=== PATIENT | female | born 1955 | race Caucasian/White ===

== ENCOUNTER 2024-09-03 07:50 | Emergency (ER) | payer OTHER, BC, SELFPAY ==
--- OUTSIDE RECORDS SUMMARY | 1999-04-16 19:00 | XMS_ITS | Continuity of Care Document ---
Author Organization [facility] Address [address] [place] [address] Phone Care Team Providers Care Energy Risk Management Analyst Name Role Phone No Information Unavailable Unavailable Medications Medication Instructions Dosage Effective Dates (start - stop) Status Comments No Drug Therapy Prescribed Advance Directives Directive Yes / No Effective Date File Name No Information Encounters Encounter Description Practice Location Reason(s) For Visit Diagnoses Date Provider Providers Copied on Encounter [facility], [address] [place] [address], [id number], [place] tel:[phone] No Information No Information Family History Family Member Type Diagnosis Age At Onset No Information Payers Payer name Insurance type Covered libertarian ID Authoriza tion(s) No Information Social History Type Description Quantity Date Captured Comments Sex Female Smoking Status No Information Chief Complaint And Reason For Visit No Information History Of Present Illness Encounter Date Complaint History Of Prese nt Illness No Information Medications Administered Medication Instructions Dosage Effective Dates (start - stop) Status Comments No Drug Therapy Prescribed Instructions Date Instruction Additional Infor mation No Information Assessments Type Assessment Date No Information
--- NOTE | 2024-09-03 07:52 | ED_ITS ---
HPI - General Adult General Date Seen: 09/03/24 Chief complaint: Fall/Minor Trauma Stated complaint: fell at work, injured eye, dizziness Time Seen by Provider: 09/03/24 07:52 History of Present Illness HPI narrative: 69 yo F with history of type 2 diabetes, hypertension, dyslipidemia, elevated BMI presenting to the ER today with her daughter with concern for head injury and left eye bruising. She works as an cost estimating engineer. Yesterday she was at work at a job in [facility] [employer]. She was walking into a manufacturing plant when she accidentally tripped. There was apparently a 1 in step-off in this sidewalk that she did not see. She fell forward and struck her face and left eye against the bottom of a glass door. Not sure if she had loss of consciousness. She did have immediate onset of headache. She broke her glasses and suffered a superficial laceration to her left lateral eyebrow. She needed help to get up. She was ambulatory yesterday. She was taken to the ER in the city of [facility]. Apparently she had an x-ray (or may be a CT, more likely) of her orbits that showed no fracture. She knows for sure that the doctor did a scan of her orbits and told her nothing was broken. She does not recall any mention of a head CT. She was discharged from the ER and try to go back to work but was having trouble helping. She ultimately went home with her daughter. Since being discharged home she has had worsening bruising and swelling of her left upper and lower eyelid. It so bruised and swollen this morning that is essentially swollen shut. She is having trouble with her depth perception because she only has her right eye. Overnight she noted a couple of episodes of dizziness that happened typically with change in position usually from going standing to laying. She has a mild headache. She has more significant pain in her left eye. She took Tylenol for that and it is only somewhat helpful. Pain is currently a 5/10. Headache is mostly left frontal but also in the back and a little bit into the neck. She also has a little bit of soreness in her shoulders and knees, although she thinks that is just achiness. She is not anticoagulated. She takes baby aspirin 81 mg per day and yesterday was told not to take that for the next 3 days. Related Data Home Medications ?Medication ?Instructions ?Recorded ?Confirmed aspirin 81 mg capsule 81 mg PO DAILY 09/03/24 05/2 0 atorvastatin .ROUTE 09/03/24 losartan .ROUTE 09/03/24 metformin .ROUTE 09/03/24 pantoprazole PO 09/03/24 topiramate .ROUTE 09/03/24 Previous Rx's ?Medication ?Instructions ?Recorded hydrocodone 5 mg-acetaminophen 325 1 tab PO Q6H PRN pa in #10 tabs 09/03/24 mg tablet ondansetron 4 mg disintegrating 4 mg PO Q8H PRN nausea and 09/03/24 tablet vomiting #10 tabs Allergies Allergy/AdvReac Type Severity Reaction Status Date / Time bacitracin (From Neosporin Allergy Intermediate Hives Verified 09/03/24 08:03 ([id number])) neomycin (From Neosporin Allergy Intermediate Hives Verified 09/03/24 08:03 ([id number])) polymyxin B (From Neosporin Allergy Intermediate Hives Verified 09/03/24 08:03 ([id number])) OSIEL Inhibitors AdvReac Intermediate Cough Verified 09/03/24 08:03 [facility] Social History Smoking Status: Unknown if ever smoked Exam Narrative: Exam Narrative: Primary Survey: A- patent. Speaking clearly. Phonation normal. No stridor. B- breathing easily. Lung sounds clear and equal. Oxygen saturation normal on room air C- no active bleeding. Blood pressure stable. Symmetric pulses and cap refill in 4 extremities. D- alert and oriented x3. GCS 15. No focal deficits. Constitutional: Appears well-developed and well-nourished. Alert. Conversant. Non toxic. HENT: Head: No depressed skull fracture, Raccoon Eyes, Montaño's sign, or hemotympanum. Face normal. TMs normal. Nose: Nose normal. Mouth/Throat: Oral mucosa is clear and moist. no trismus. Pharynx normal. Tonsils symmetric. No tonsillar enlargement, erythema, or exudate. Eyes: Left eye upper and lower eyelid ecchymosis and swelling. She is not able to open her eyes spontaneously but with gentle digital traction I am able open upper high. Sclera is normal. Conjunctivae normal. EOM normal. Pupils equal, round, and reactive to light. No scleral icterus. No exophthalmos or enophthalmos. Neck: Normal range of motion. Neck supple. No tracheal deviation present. No posterior midline step-off. She does have headache and neck pain. Cardiovascular: Normal rate, regular rhythm. No gallop. No friction rub. No murmur heard. Symmetric radial artery pulses Pulmonary/Chest: Effort normal. No stridor. No respiratory distress. No wheezes. No rales. No rhonchi . No tenderness. Abdominal: Soft. Bowel sounds normal. No distension. No mass. No tenderness. No rebound. No guarding. Musculoskeletal: RUE: Normal range of motion. No tenderness. No deformity LUE: Normal range of motion. No tenderness. No deformity RLE: Normal range of motion. No edema. No tenderness. No deformity LLE: Normal range of motion. No edema. No tenderness. No deformity Lymph: No cervical adenopathy. Neurological: Mental status normal. Attention normal. Alert and oriented x3. GCS 15. Memory normal. Speech fluent. Cognition normal. Cranial Nerves intact II-XII except I did not formally test gag or visual acuity. EOMI. Palate elevates symmetrically and tongue protrudes in the midline. Strength: 5/5 trapezius on the right and left 5/5 deltoid on the right and left 5/5 biceps on the right and left 5/5 triceps on the right and left 5/5 operational meteorologist on the right and left 5/5 thumb opposition on the right and le ft 5/5 finger abduction on the right and le ft 5/5 hip flexors (L3) on the right and le ft 5/5 quadriceps (L4) on the right and lef t 5/5 tibialis anterior on the right and l eft 5/5 EHL (L5) on the right and left 5/5 gastrocnemius (S1) on the right and left 5/5 hamstring on the right and left Sensation intact to light touch in both upper extremities (C4-T1) Sensation intact to light touch in Both lower extremities (L4-S1). Finger to nose and coordination normal. Gait normal. She is able to get herself out of bed and stand up, pivot and walk, get back into bed without suffering any episodes of dizziness. Skin: Skin is warm and dry. No rash noted. No pallor. Normal capillary refill. Psychiatric: Normal mood. Normal affect. Const: Vital Signs, click to edit/add: Vital Signs - 24 hr 09/03/24 08:03 Temperature 97.2 F L Pulse Rate [Pulse Oximeter] 75 Respiratory Rate 16 Blood Pressure [Ri ght Forearm] 150/83 H Pulse Oximetry 95 Oxygen Delivery Me thod Room Air Course Vital Signs Vital signs: Initial Vital Signs Temperature 97.2 F L 09/03/24 08:03 Temperature Source Temporal Artery Scan 09/03/24 08:03 Pulse Rate 75 09/03/24 08:03 Respiratory Rate 16 09/03/24 08:03 Blood Pressure 150/83 H 09/03/24 08:03 Blood Pressure Mean 105 09/03/24 08:03 Pulse Oximetry 95 09/03/24 08:03 Oxygen Delivery Method Room Air 09/03/24 08:03 Vital Signs Temperature 97.2 F L 09/03/24 08:03 Pulse Rate 75 09/03/24 08:03 Respiratory Rate 16 09/03/24 08:03 Blood Pressure 150/83 H 09/03/24 08:03 Pulse Oximetry 95 09/03/24 08:03 Oxygen Delivery Method Room Air 09/03/24 08:03 Temperature 97.2 F L 09/03/24 08:03 Pulse Rate 75 09/03/24 08:03 Respiratory Rate 16 09/03/24 08:03 Blood Pressure 150/83 H 09/03/24 08:03 Pulse Oximetry 95 09/03/24 08:03 Oxygen Delivery Method Room Air 09/03/24 08:03 Medications Administered Medications: Discontinued Medications Generic Name Dose Route Start Last Admin Trade Name Freq PRN Reason Stop Dose Admin Hydrocodone Bitart/Acetaminophen 1 tab 09/03/24 08:32 09/03/24 08:47 Hydrocodone-Acetamin 5-325 Mg 1 Tab PO 09/03/24 08:33 1 tab ONCE ONE Administration Ondansetron HCl 4 mg 09/03/24 08:32 09/03/24 08:47 Ondansetron Odt 4 Mg Tab PO 09/03/24 08:33 4 mg ONCE ONE Administration Medical Decision Making [facility] Narrative Medical decision making narrative: This patient presents with blunt head trauma after a fall where she tripped yesterday. She does have significant ecchymosis and swelling in the left periorbital tissues. She already was seen in different ER yesterday and reportedly had CT scan that showed no evidence for orbital fracture. She returns to the ER today here in [place] because she has had new symptoms overnight including ongoing headache and episodes of dizziness. Differential includes intracranial injuries (e.g. skull fracture, epidural hematoma, subdural hematoma, intracerebral hemorrhage, and traumatic subarachnoid hemorrhage), verses concussion or other traumatic brain injury. CT imaging was obtained and fortunately was normal. At this time it appears that the patient's symptoms are due to a concussion. Differential for dizzy spells is broad. However based on the provided history, symptoms seem highly consistent with concussion. At this point I do not think she needs workup with EKG, labs, property assessment monitor look for cardiac arrhythmia or cardiac causes of dizziness. Symptoms not consistent with seizures. At this point only she need labs to check electrolytes, blood sugar, sodium, or urinalysis. C-spine CT is negative. The patient/family understand that they must return if any red flags appear/develop in the coming hours/days, as this may represent an indication to perform a repeat CT scan or further evaluation. I have noted that red flags include: headaches that get worse, increased drowsiness, strange behavior, repetitive speech, seizures, repeated vomiting, growing confusion, increased irritability, slurred speech, weakness or numbness, and loss of responsiveness. This information will also be provided in writing at discharge. I have discussed the second impact syndrome, and the importance of not sustaining repeated concussion in the next 1-2 weeks. Post concussive syndrome is also discussed. The patient's questions have been answered. They have a responsible adult to accompany them home. Imaging Data CT C spine: Attestation: I have reviewed the pertinent imaging results. Radiologist's impression: IMPRESSION: Multilevel degenerative changes cervical spine without evidence of cervical spine fracture. CT scan - head: Attestation: I have reviewed the pertinent imaging results. Radiologist's impression: IMPRESSION: Left periorbital scalp hematoma without evidence of calvarial fracture or intracranial bleed. Discharge Plan Discharge Clinical Impression: Concussion, Dizziness, Periorbital ecchymosis of left eye Patient Disposition: Home, Self-Care Condition: Stable Instructions: Black Eye (ED), Concussion (ED) Additional Instructions: As we discussed, please return to the ER right away if you have worsening symptoms especially severe headache, confusion, repetitive vomiting. He at this point we suspect you probably have a concussion from your fall. This concussion may take several days or even a couple weeks to heal. However if your not doing substantially better within the next 3-4 days, please recheck with your doctor or come back to the ER. It is okay to use Tylenol as needed for pain. Use the prescription pain killer, [place], if needed. Be careful because [place] can cause dizziness, drowsiness, constipation, and can be addictive. Prescriptions: New hydrocodone-acetaminophen 5-325 mg tablet 1 tab PO Q6H PRN (Reason: pain) Qty: 10 0RF ondansetron 4 mg tablet,disintegrating 4 mg PO Q8H PRN (Reason: nausea and vomiting) Qty: 10 0RF No Action aspirin 81 mg capsule 81 mg PO DAILY atorvastatin .ROUTE losartan .ROUTE metformin .ROUTE pantoprazole PO topiramate .ROUTE Follow Up/Referrals: Provider,Not a Local [Primary Care Provider, Family Practice] Stand Alone Forms: [facility], [facility] Info Instructions
[2024-09-03 08:03] VITALS: BP 150/83; PULSE 75; RESP 16; TEMP 36.2; O2SAT 95
--- NOTE | 2024-09-03 08:32 | CRLHL7_ITS ---
For Patients: As a result of the Century Cures Act, medical imaging exams and procedure reports are released immediately into your electronic medical record. You may view this report before your referring provider. If you have questions, please contact your health care provider. INDICATION: Fall, dizziness, headache and neck pain. TECHNIQUE: CT head without contrast. COMPARISON: None. FINDINGS: CSF spaces: Within normal limits for age. Brain parenchyma: The de los santos-white differentiation is normal. No sign of mass, hemorrhage, or midline shift. Skull base and calvarium: The visualized paranasal sinuses and mastoid air cells demonstrate no acute or significant findings. The visualized orbits are grossly unremarkable. No skull fractures. Left periorbital scalp hematoma. IMPRESSION: Left periorbital scalp hematoma without evidence of calvarial fracture or intracranial bleed. Please note that all CT scans at this facility use dose modulation, iterative reconstruction, and/or weight-based dosing when appropriate to reduce radiation dose to as low as reasonably achievable. Dictated by Juan Ambrocio MD @ 09/03/2024 8:53:57 AM (Electronically Signed)
--- NOTE | 2024-09-03 08:32 | CRLHL7_ITS ---
For Patients: As a result of the Century Cures Act, medical imaging exams and procedure reports are released immediately into your electronic medical record. You may view this report before your referring provider. If you have questions, please contact your health care provider. INDICATION: Fall, dizziness, headache and neck pain TECHNIQUE: CT cervical spine without contrast. COMPARISON: None FINDINGS: Vertebrae: Alignment is normal. There are no fractures or suspicious bony lesions. Discs and facet joints: Facet hypertrophy C4-5 without significant stenosis. Broad posterior osteophytes at C5-6 causing mild central spinal canal stenosis and [id number] bilateral foraminal stenosis. Eccentric osteophytes at C6-7 causing moderate right foraminal stenosis. Facet hypertrophy without significant stenosis C7-T1. Extraspinal findings: Ossicle within the nuchal ligament. IMPRESSION: Multilevel degenerative changes cervical spine without evidence of cervical spine fracture. Please note that all CT scans at this facility use dose modulation, iterative reconstruction, and/or weight-based dosing when appropriate to reduce radiation dose to as low as reasonably achievable. Dictated by Juan Ambrocio MD @ 09/03/2024 8:58:32 AM (Electronically Signed)
[2024-09-03] MEDS: ONDANSETRON ODT 4 MG TAB PO (08:47)
[2024-09-03] MEDS: HYDROCODONE-ACETAMIN 5-325 MG 1 TAB PO (08:47)
--- OUTSIDE RECORDS SUMMARY | 2024-09-03 09:14 | XMS_ITS | Clinical Summary ---
Author Organization [facility] Address [address] [place] [address] Care Team Providers Care Mold Filler And Drainer Name Role Phone Nancy Molina Primary Care Provider [phone] Jessica Hernandez APRN FLAVORING OIL FILTERER Unavailable [phone] Allergies Active Allergy Reactions Criticality Noted Date Comments Gomez Inhibitors Cough 04/03/2015 Prochlorperazine Other (See Comments) 07/17/2015 Extrapyramidal symptoms Neomycin 04/03/2015 Osfsrdis-Vuejczzgh-Tylwhza din 04/03/2015 Olanzapine Fatigue 07/29/2015 Severe fatigue/groggines s/memory loss Sulfa Antibiotics Swelling Low 10/20/2013 Medications METFORMIN HCL PO Take 500 mg by mouth 2 times daily (with meals) Active ASPIRIN PO Take 81 mg by mouth daily Active polyethylene glycol (MIRALAX/GLYCOL AX) powder Take 1 capful by mouth daily Active ATORVASTATIN CALCIUM PO Take 20 mg by mouth daily Active LOSARTAN POTASSIUM PO Take 25 mg by mouth daily Active Cholecalciferol (VITAMIN D3 PO) Take 2,000 Units by mouth daily Active TRAZODONE HCL PO Take 50 mg by mouth nightly as needed for sleep 1-2 tablets as needed. Active Insulin NPH Human, Isophane, (HUMULIN N KWIKPEN SC) Inject 15 Units Subcutaneous Takes 15 units with Chemo. Dose is according to dose of dexamethasone. Active order for DMEIndications: Malignant neoplasm of fallopian tube, unspecified laterality (H) Cranial Hair prothesis( 2) Due to chemotherapy 2 Device 0 6 Active L-Glutamine 500 MG CAPS 6 Active blood glucose monitoring (ACCU-CHEK FASTCLIX) lancets 1 each 5 Active blood glucose monitoring (NO BRAND SPECIFIED) test strip 1 strip 5 Active HYDROcodone-gomez taminophen (NORCO) 7.5-325 MG per tabletIndicatio ns:Malignant neoplasm of fallopian tube, unspecified laterality (H) Take 1 tablet by mouth every 6 hours as needed for moderate to severe pain 30 tablet 0 6 Active dexamethasone (DECADRON) 4 MG tabletIndicatio ns:Nausea,Malig nant neoplasm of fallopian tube, unspecified laterality (H) Take 1 tablet (4 mg) by mouth daily (with breakfast) On day three of your chemotherapy cycle 2 tablet 0 6 Active ondansetron (ZOFRAN) 8 MG tabletIndicatio ns:Malignant neoplasm of fallopian tube, unspecified laterality (H),Nausea Take 1 tablet (8 mg) by mouth every 8 hours as needed for nausea 30 tablet 2 6 Active LORazepam (ATIVAN) 1 MG tabletIndicatio ns:Nausea Take 1 tablet (1 mg) by mouth every 6 hours as needed for anxiety 30 tablet 0 6 Active gabapentin (NEURONTIN) 300 MG capsuleIndicati ons: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 Encounter for long-term (current) use of medicat ions 06/04/2015 Multiple joint pain 06/04/2015 Neoplastic malignant related fatigue 06/04/2015 Malignant neoplasm of fallop jose tube, unspecified laterality 04/03/2015 Immunizations Immunization Administration Dates Next Due Influenza (IIV3) PF 01/20/2015 Social History Tobacco Use Types Packs/Day Years Used Date Smoking Tobacco: Never Alcohol Use Standard Drinks/Week Comments No 0 (1 standard drink = 0.6 oz pur e alcohol) Adolescent Education Answer Date Record ed Getting School Help Needed Not on file 01/28 Comments No Sex and Gender Information Value Date Recorded Sex Assigned at Not on file 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 Gender Identity Not on file Sexual Orientation Not on file Last Filed Vital Signs Vital Sign Reading Time Taken Comments Blood Pressure 136/71 09/24/2023 9:15 PM CDT Pulse 87 09/24/2023 9:23 PM CDT Temperature 36.7 C (98 F) 09/24/2023 6:08 PM CDT Respiratory Rate 15 09/24/2023 9:23 PM CDT Oxygen Saturation 96% 09/24/2023 9:23 PM CDT Inhaled Oxygen Concentration - - Weight 104.3 kg (230 lb) 09/24/2023 6:06 PM CDT Height 154.9 cm (5' 1) 09/24/2023 6:06 PM CDT Body Mass Index 43.46 09/24/2023 6:06 PM CDT Plan of Treatment Health Maintenance Due Date Last Done Comments ADVANCE CARE PLANNING 1955 ANNUAL REVIEW OF HM ORDERS 1956 CT COLONOGRAPHY 1956 DIABETIC FOOT EXAM 1956 EYE EXAM 1955 FLEX SIG 1956 LIPID 1956 MICROALBUMIN 1956 sDNA (Cologuard) 1956 COLONOSCOPY 1966 RSV VACCINE (1 - Risk 60-74 years 1-dose series) 2016 A1C 06/14/2016 12/15/2015, 05/15/2015 COVID-19 Vaccine (3 - Pfizer risk series) 08/20/2020 07/23/2020, 07/02/2020 FALL RISK ASSESSMENT 2021 COLORECTAL CANCER SCREENING 07/04/2021 FIT 07/04/2021 07/04/2020 MEDICARE ANNUAL WELLNESS VISIT 10/26/2023 10/25/2022, 07/14/2021, 06/25/2020, Additional history exists PHQ-2 (once per calendar year) 2024 BMP 09/23/2024 09/24/2023, 12/0 09/2021, 12/15/2015, Additional history exists MAMMO SCREENING 11/09/2024 11/09/2022, 0709/2022, 07/23/2021, Additional history exists INFLUENZA VACCINE (Season Ended) 2024 04/29/2022, 12/24/2020, 12/31/2019, Additional history exists DTAP/TDAP/TD IMMUNIZATION (3 - Td or Tdap) 12/24/2030 12/24/2020, 12/04/2009 DEXA 01/13/2035 01/14/2020 HEPATITIS C SCREENING Completed 03/24/2017 PAP Discontinued 05/28/2019 ZOSTER IMMUNIZATION Completed 12/07/2020, 0 Pneumococcal Vaccine: 50+ Years Completed 04/29/2022, 03/24/2017 HPV IMMUNIZATION Aged Out No longer e ligible based on patient's age to complete this topic MENINGITIS IMMUNIZATION Aged Out No l onger eligible based on patient's age to complete this topic Procedures Procedure Name Priority Date/Time Associated Diagnosis Comments BASIC METABOLIC PANEL STAT 09/24/2023 6:10 PM CDT HEMOGLOBIN A1C Routine 12/15/2015 10:20 AM CDT 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 There may be differences in the flagging of prior results with similar values performed with this method. Interpretation of those prior results can be made in the context of the updated reference intervals. Potassium 4.7 3.4 - 5.3 mmol/L 09/24/2023 6:57 PM CDT LABORATORY Chloride 103 98 - 107 mmol/L 09/24/2023 6:57 PM CDT LABORATORY Carbon Dioxide (CO2) 19(L) 22 - 29 mmol/L 09/24/2023 6:57 PM CDT LABORATORY Anion Gap 16(H) 7 - 15 mmol/L 09/24/2023 6:57 PM CDT LABORATORY Urea Nitrogen 18.3 8.0 - 23.0 mg/dL 09/24/2023 6:57 PM CDT LABORATORY Creatinine 0.98(H) 0.51 - 0.95 mg/dL 09/24/2023 6:57 PM CDT LABORATORY GFR Estimate 63 >60 mL/min/1. 73m2 09/24/2023 6:57 PM CDT LABORATORY Calcium 9.2 8.8 - 10.2 mg/dL 09/24/2023 6:57 PM CDT LABORATORY Glucose 135(H) 70 - 99 mg/dL 09/24/2023 6:57 PM CDT LABORATORY Blood STRUCTURE OF RIGHT UPPER LIMB / Unknown Venipuncture / Unknown 09/24/2023 6:10 PM CDT 09/24/2023 6:30 PM CDT us Rogerio Guo MD LAB - BLOOD ORDERABLES Final Result LABORATORY [facility] [address] 1[address], [address] [place] [address], [place] [phone] * (ABNORMAL) Hemoglobin A1c (12/15/2015 10:20 AM CDT) Hemoglobin A1C 6.5(H) 4.3 - 6.0 % [facility] Blood specimen (specimen) 12/15/2015 10:20 AM CDT 12/15/2015 10:26 AM CDT us Nancy Molina LAB - BLOOD ORDERABLES Final Res ult [facility] [address] [place] [address], [place] [phone] from Last 3 Months or Most Recently Relevant to Health Maintenance [place] Care Teams Mold Filler And Drainer Relationship Specialty Start Date End Date Nancy Molina PCP - General 03/31/15 Jessica Hernandez APRN CNP Nurse Practitioner Nurse Practitioner 07/17/15
--- OUTSIDE RECORDS SUMMARY | 2024-09-03 09:14 | XMS_ITS ---
Author Organization [facility] Address [address] [place] [address] Care Team Providers Care Security Dispatcher Name Role Phone Nancy Molina Primary Care Provider [phone] Jessica Hernandez APRN [employer] Unavailable Active Problems Problem Noted Date Diagnosed Date Chemotherapy-induced neutropenia 08/07/2015 Anxiety 06/26/2015 Diabetes mellitus, type 2 06/26/2015 Drug-induced polyneuropathy 06/04/2015 Encounter for long-term (current) use of medicat ions 06/04/2015 Multiple joint pain 06/04/2015 Neoplastic malignant related fatigue 06/04/2015 Malignant neoplasm of fallop jose tube, unspecified laterality 04/03/2015 Current Treatment and Therapy Plans No current plan information found. Past Treatment and Therapy Plans INFUSION Plan Name Start Date Discontinue Date Treatment Medications Discontinue Reason Plan Provider GENERIC INFUSION 10/26/2015 12/11/2017 No medications scheduled. Therapy Complete -
--- OUTSIDE RECORDS SUMMARY | 2024-09-03 09:14 | XMS_ITS | Encounter Summary ---
Author Organization [facility] Address [address] [address] Care Team Providers Care Rn Assessment Name Role Phone Nancy Molina MD Primary Care Provider [phone] Reason for Visit * Reason Comments SWELLING, EYE Encounter Details Date Type Department Care Team (Late st Contact Info) Description 09/03/2024 Nurse Triage [facility] [address] [place] [address] Nancy Molina MD [address] [place] [phone] SWELLING, EYE Social History Tobacco Use Types Packs/Day Years Used Date Smoking Tobacco: Never Smokeless Tobacco: Never Alcohol Use Standard Drinks/Week Comments Not Currently 0 (1 standard drink = 0.6 oz pur e alcohol) PHQ-2 Answer Date Recorded PHQ-2 Score 0 11/28/2023 Comments No Sex and Gender Information Value Date Recorded Sex Assigned at Not on file Legal Sex Female 5:16 AM CDT Gender Identity Not on file Sexual Orientation Not on file documented as of this encounter Nursing Notes * Darvin Solis RN - 09/03/2024 7:07 AM CDT Situation/Background (brief explanation of current symptoms/situation): Pt calling. Yesterday, pt tripped and fell into a glass door hitting her head at a manufacturing plant in [place] and was seen at an ER there. Today, her symptoms are worse. Her left eye is completely swollen shut and she is having dizziness which has worsened to the point of feeling faint. Pt states she's afraid to stand up andwalk d/t her symptoms. She otherwise has been needing assistance with walking. No LOC. Advised pt to call 911. Pt verbalized understanding. Reviewed pertinent medical history (as relates to the call): Yes Reviewed pertinent medications (as relates to the call): Yes Reason for Disposition Sounds like a life-threatening emergency to the triager Protocols used: Head [id number] * Maximiliano Nam - 09/03/2024 6:57 AM CDT Symptoms Describe your symptoms (if pain, include location): Swelling- left eye and cannot open eye today / was seen in [place] at a E/R for this but is worse today and also has dizziness Has 2 cuts with no bleeding or stitches at time of call. When did they start? 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 Yes documented in this encounter Plan of Treatment Upcoming Encounters Date Type Department Care Team (Late st Contact Info) Description 11/21/2024 7:30 AM CDT Appointment [facility] [address] [place] [address] 11/28/2024 2:30 PM CDT Appointment [facility] [address] [place], [place] [phone] [place] [address] [place] [phone] documented as of this encounter Visit Diagnoses Not on filedocumented in this encounter Care Teams Rn Assessment Relationship Specialty [place] [address] [place] [address] PCP - General 09/06/13 documented as of this encounter
--- OUTSIDE RECORDS SUMMARY | 2024-09-03 09:14 | XMS_ITS | Encounter Summary ---
Author Organization [facility] Address [address] [address] Care Team Providers Care Electric Fork Operator Name Role Phone Nancy Green MD Primary Care Provider [phone] Reason for Visit * Reason Comments Refill losartan (COZAAR) 50 MG tablet [Pharmacy Med Name: LOSARTAN 50MG TABLETS] Encounter Details Date Type Department Care Team (Late st Contact Info) Description 08/15/2024 Refill [facility] [address] [place] [address] [place] [address] [place], [place] [phone] Refill (losartan (COZAAR) 50 MG tablet [Pharmacy Med Name: LOSARTAN 50MG TABLETS]) Social History Tobacco Use Types Packs/Day Years [...] as of this encounter Nursing Notes * Carmen Yeh Xrwcomm - 08/15/2024 3:53 AM CDT losartan (COZAAR) 50 MG tablet [Pharmacy Med Name: LOSARTAN 50MG TABLETS] Medication started: 01/21/2019 Last ordered by NANCY GREEN: 05/30/2024 (77 days ago) QTY: 180, Refills: 3, Sig: take 2 tablets (100 mg) by mouth daily. (changed but equivalent) -> The patient is requesting refills too soon, the current prescription is due to run out on 05/25/2025. -> Refill x 12 months, qty: 180, refills: 3 (until due for a(n) Cr check and K check) Last qualifying visit: 05/30/2024 (with NANCY GREEN) Next scheduled visit: 11/28/2024 (with NANCY GREEN) Cr: 0.8 mg/dL on 05/22/2024 K: 4.1 mEq/L on 05/22/2024 [facility] Embedded Refills, Reference: [id number], 08/15/2024 3:53:41 AM Carmen DIEGO Refill [facility] - Primary Care [[id number]] ([id number]) * Carmen Yehwcomm - 08/15/2024 3:53 AM CDT The following lab order(s) may be associated with the following Patient Result Comment (Entered by Nancy Green MD at 05/22/2024 2:36 PM): HGB A1C Stable labs, we will discuss at upcoming visit. Nancy Green MD documented in this encounter Plan of Treatment Upcoming Encounters Date Type Department Care Team (Late st Contact Info) Description 11/21/2024 7:30 AM CDT Appointment [facility] [address] [place] [address] 11/28/2024 2:30 PM CDT Appointment [facility] [address] [place] [address] [place] [address] [place] [address] documented as of this encounter Visit Diagnoses Diagnosis Essential hypertension (HRC) Unspecified essential hypertension documented in this encounter Care Teams Electric Fork Operator Relationship Specialty [place] [address] [place] [address] PCP - General 09/06/13 documented as of this encounter
--- OUTSIDE RECORDS SUMMARY | 2024-09-03 09:14 | XMS_ITS | Encounter Summary ---
Author Organization [facility] Address [address] [address] Care Team Providers Care Residential Sales Representative Name Role Phone Nnacy Green MD Primary Care Provider [phone] Reason for Visit * Reason Comments Refill atorvastatin (LIPITO R) 20 MG tablet [Pharmacy Med Name: ATORVASTATIN 20MG TABLETS] Encounter Details Date Type Department Care Team (Late st Contact Info) Description 07/28/2024 Refill [facility] [address] [place] [address] [place] [address] [place], [place] [phone] Refill (atorvastatin (LIPITOR) 20 MG tablet [Pharmacy Med Name: ATORVASTATIN 20MG TABLETS]) Social History Tobacco Use Types Packs/Day [...] Nursing Notes * Carmen Yeh Xrwcomm - 07/28/2024 3:53 AM CDT atorvastatin (LIPITOR) 20 MG tablet [Pharmacy Med Name: ATORVASTATIN 20MG TABLETS] Medication started: 06/24/2019 Last ordered by NANCY GREEN: 05/30/2024 (59 days ago) QTY: 90, Refills: 3, Sig: take 1 tablet (20 mg) by mouth daily. (changed but equivalent) -> The patient is requesting refills too soon, the current prescription is due to run out on 05/25/2025. -> Refill x 12 months, qty: 90, refills: 3 (until due for an office visit) Last qualifying visit: 05/30/2024 (with NANCY GREEN) Next scheduled visit: 11/28/2024 (with NANCY GREEN) [facility] Embedded Refills, Reference: [id number], 07/28/2024 3:53:39 AM CDT, Carmen VILLANUEVA Refill [facility]ized Services - Primary Care [[id number]] ([id number]) documented in this encounter Plan of Treatment Upcoming Encounters Date Type Department Care Team (Late st [facility]) Description 11/21/2024 7:30 AM CDT Appointment [facility] [address] [place] [address] 11/28/2024 2:30 PM CDT Appointment [facility] [address] [place] [address] [place] [address] [place] [address] documented as of this encounter Visit Diagnoses Diagnosis Mixed hyperlipidemia (HRC) Mixed hyperlipidemia documented in this encounter Care Teams Residential Sales Representative Relationship Specialty [place] [address] [place] [address] PCP - General 09/06/13 documented as of this encounter
--- OUTSIDE RECORDS SUMMARY | 2024-09-03 09:14 | XMS_ITS ---
Author Organization [facility] Address [address] [place] [address] Care Team Providers Care Filler Room Attendant Name Role Phone Nancy Molina MD Primary Care Provider [phone] Active Problems * This document contains information received from the source organization and may not represent a complete record from that organization. Problem Noted Date Diagnosed Date Starr's esophagus without dysplasia 05/30/2024 Overview (06/04/2024): REPEAT EGD DUE 3 years , 02/2027 (received and reviewed [facility] records. As suspected, records show repeat EGD was recommended in 3 years for surveillance) EGD 02/2024 with [facility] with path showing pancreatic acinar metaplasia at the GE junction - treated with protonix 40 mg daily for 1-2 months, then stopped. GERD symptoms returned, resume 20 mg daily. To call GI to inquire if EGD surveillance needed. Pt reports GI recommended CA 19-9 Gastroesophageal reflux disease without esophagi tis 11/27/2023 Overview (11/27/2023): Put on high dose PPI 09/2023 after ring dilation and food impaction in the ER Schatzki's ring 11/27/2023 Overview (11/27/2023): S/p dilation 09/2023 [facility] ER for food impaction, [facility]. Gastroparesis 10/20/2023 Overview (10/20/2023): 10/20/2023 Dx by OSH LISA GONZALEZ - take off ozempic (for DMII and weight loss for joint replacement) Primary osteoarthritis of both knees 05/25/2023 Overview (05/25/2023): Severe medial compartment on XR 05/25/2023 - ref ortho Lymphedema 05/25/2023 Mild obstructive sleep apnea 02/04/2023 Overview (07/20/2023): Setting: AutoPAP 5-11 cmH20 Supplied by: Grace PSG done: 01-25-23 HST RDI/BOWEN 11 (EDS) ALLAN 16 Lowest O2 Sat: 82% Knowles/ restrepo Nephrolithiasis 04/29/2022 Low serum vitamin B12 01/19/2022 Low bone mass 01/20/2020 Overview (01/20/2020): 01/20/2020 DEXA mild low bone mass - h/o chemo. due in 6 years - 2025- Herpes simplex vulvovaginitis 12/11/2018 Overview (12/11/2018): Dx with genital herpes from [facility] per report - biopsy was attempted but sample error per pt and no results. 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 Avoid HCTZ due to nephrolithiasis. 10/25/2022 trial coreg Vitamin D deficiency 09/09/2013 Mixed hyperlipidemia 09/09/2013 Overview (12/17/2015): 08/2013 10-year 11.1% - 01/2015 started atorvastatin 20 mg Routine health maintenance 09/06/2013 Overview (11/27/2023): Reviewed at physical exam 11/27/2023 Menstrual periods: Post menopausal 2011 Calcium/vit D: Recommended daily DEXA: ordered 12/20/2017 baseline - h/o chemo. 01/20/2020 mild low bone mass, due in 6 years - 2025 ASA: NA Estimated body mass index is 46.29 kg/m as calculated from the following: Height as of 10/11/23: 1.549 m (5' 1). Weight as of 10/11/23: 111.1 kg (245 lb). 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 Smoking cessation: Never smoker Mammogram: Last normal 10/2022- due annually Pap smear: NA - no further needed. Neg HPV 08/2013,Neg 05/2019 with cotesting - due to see robotic welding operator onc. Colonoscopy: Last 2009, incomplete, only to hepatic flexure due to excessive looping to consider CT colography per GI doc - DUE - ordered colon 06/27/2019, asked for GI to review prior to scheduling for advice on safety. FIT NEG 07/07/2020 - 12/22/2021 colonoscopy 2 polyps. DUE 12/2026 Morbid obesity with BMI of 40.0-44.9, adult 08/16 Overview (06/27/2019): BMI 50 --> 43 06/27/2019 Current Treatment and Therapy Plans No current plan information found. Past Treatment and Therapy Plans No past plan information found. Lifetime Dose Tracking * Chemical Lifetime Dose Automatic Entry Manual Entr y Fluoro Time 0.2 minutes 0.2 minutes 0 minutes Total Air Kerma 2.94 mGy 2.94 mGy 0 mGy Resolved Problems Problem Noted Date Diagnosed Date Resolved Date Gallstones 05/19/2022 05/25/2023 Overview (05/19/2022): Added automatically from request for surgery [id number] Cervical cancer screening 06/06/2019 Overview (06/06/2019): [facility] Review: History: history of 'Clinical stage 1 fallopian tube carcinoma', had hysterectomy in 2014 but still has cervix 2020: NILM HPV neg Plan, per ASCCP guidelines: Repeat co-test in 3 years (2022). Per consult with Kim Albright CNP 'I would recommend screening until age 65'. Recurrent cold sores 09/21/2016 024 Overview (09/21/2016): Valtrex prn Iron deficiency anemia due t o chronic blood loss 12/22/2015 06/27/2019 Overview (12/22/2015): hgb up to 11.6 12/22/2015 (from 9s) on OSH lab testing, see scan CAREPLAN: [facility] 6 08/02/2016 Overview (02/17/2016): Background: Engaged in Complex Case Management:Karen Cabrera RN [phone] Goals/Recommendations: Chemotherapy-induced neutropenia 08/07/2015 06/04/2024 Multiple joint pain 06/04/2015 10/20/19 24 Neoplastic malignant related fatigue 06/04/2015 06/04/2024 Primary insomnia 05/11/2015 06/02/2023 S/P carpal tunnel release 02/11/2011 S/P tonsillectomy and adenoidectomy 02/11/2011 04/20/2015 S/P tube myringotomy 02/11/2011 016 S/P arthroscopy of knee 02/11/201107/2015 Overview (12/17/2015): Left side Asthma 04/13/2009 04/20/2015 Overview (12/07/2016): exercise induced Depressive disorder 07/25/2005 02/12/20 11 Overview (12/07/2016): LW Onset: [id number] ; Depression NOS Essential hypertension 09/21/200202/11 Overview (12/07/2016): Hypertension Obesity 09/21/2002 09/06/2013
--- OUTSIDE RECORDS SUMMARY | 2024-09-03 09:14 | XMS_ITS | Encounter Summary ---
Author Organization [facility] Address [address] [address] Care Team Providers Care Boat Joiner Helper Name Role Phone Nancy Molina MD Primary Care Provider Encounter Details Date Type Department Care Team (Late st Contact Info) Description 05/31/2024 Results Follow-Up [facility] [address] [facility] [place], [place] [phone] Vanessa Maxwell APRN, UPSET OPERATOR [address] [place] [phone] Social History Tobacco Use Types Packs/Day Years [...] on file documented as of this encounter Plan of Treatment Upcoming Encounters Date Type Department Care Team (Late st Contact Info) Description 11/21/2024 7:30 AM CDT Appointment [facility] [address] [place] [phone] 11/28/2024 2:30 PM CDT Appointment [facility] [address] [facility] [place] [address] [place] [address] [address] [address] documented as of this encounter Visit Diagnoses Not on filedocumented in this encounter Care Teams Boat Joiner Helper Relationship Specialty [place] [address] [address] [address] PCP - General 09/06/13 documented as of this encounter
--- OUTSIDE RECORDS SUMMARY | 2024-09-03 09:14 | XMS_ITS | Clinical Summary ---
Author Organization [employer] Address [address], [place] [address] Care Team Providers Care Java Analyst Name Role Phone Nancy Molina MD Primary Care Provider [phone] Source Comments You are receiving this document as you are listed as the primary care provider,follow-up provider, or the patient has been referred to you for consultation.This is in compliance with the Medicare andMedicaid EHR Incentive Program,which states Providers who transition their patient to another setting of careor provider of care or refers their patient to another provider of care shouldprovide summary care record for each transition of care or referral. [employer] Allergies Active Allergy Reactions Criticality Noted Date Comments Gomez Inhibitors Cough 12/04/2009 Amlodipine Edema,generalized 10/25/2022 Qidgxvbknc-Ogilngmr-Efxvku marin Hives,Rash High 12/24/2004 Benzalkonium Chloride Hives High 02/21/2021 Olanzapine Fatigue 07/29/2015 Severe fatigue/groggines s/memory loss Prochlorperazine Other, see comments 07/17/2015 Extrapyramidal symptoms Sulfa Antibiotics Hives High 07/17/2008 Medications * This document contains information received from the source organization and may not represent a complete record from that organization. vitamin B-12 (AKA: CYANOCOBALAMIN) 1000 MCG tabletIndications: Low serum vitamin B12 (HRC) Take 1 Tablet (1,000 mcg) by mouth daily. Sublingual OTC 2 Active Cholecalciferol (VITAMIN D3) 50 MCG (1999)Indications:Vit melvin D deficiency (HRC) Take 1 Capsule by mouth daily. 90 Capsule 3 3 Active blood glucose test stripIndications:C ontrolled type 2 diabetes mellitus without complication, without long-term current use of insulin (HRC) Use 1 Each to test daily. 100 Strip 11 3 Active ALBUterol sulfate HFA 108 (90 Base) MCG/ACT inhaler Inhale 1-2 Puffs every 4 hours as needed for Shortness of Breath. 1 Each 4 Active estradiol (ESTRACE) 0.1 MG/GM vaginal creamIndications:F requent UTI,Vaginal atrophy INSERT 1G VAGINALLY 2 TIMES A WEEK 42.5 g 3 5 Active buPROPion (WELLBUTRIN XL) 150 MG 24 hour release tablet Take 1 Tablet (150 mg) by mouth daily. 5 Active topiramate (TOPAMAX) 25 MG tablet Take 1 Tablet (25 mg) by mouth two times a day. 5 Active aspirin EC (ASPIRIN LOW DOSE) 81 MG enteric coated tabletIndications: Controlled type 2 diabetes mellitus without complication, without long-term current use of insulin (HRC),Essential hypertension (HRC) Take 1 Tablet (81 mg) by mouth daily. 90 Tablet 3 5 Active atorvastatin (LIPITOR) 20 MG tabletIndications: Mixed hyperlipidemia (HRC) Take 1 Tablet (20 mg) by mouth daily. 90 Tablet 3 5 Active losartan (COZAAR) 50 MG tabletIndications: Essential hypertension (HRC) Take 2 Tablets (100 mg) by mouth daily. 180 Tablet 3 5 026 Active metFORMIN XR (GLUCOPHAGE XR) 500 MG 24 hour release tabletIndications: Controlled type 2 diabetes mellitus without complication, without long-term current use of insulin (HRC) Take 4 Tablets (2,000 mg) by mouth daily with meal. 360 Tablet [address] (PROTONIX) 20 MG tabletIndications: Gastroesophageal reflux disease without esophagitis Take 1 Tablet (20 mg) by mouth daily. 90 Tablet 3 5 Active Active Problems Problem Noted Date Diagnosed Date Starr's esophagus without dysplasia 05/30/2024 Overview (06/04/2024): REPEAT EGD DUE 3 years , 02/2027 (received and reviewed [facility] GI records. As suspected, records show repeat EGD was recommended in 3 years for surveillance) [facility] pancreatic acinar metaplasia at [...] dilation 09/2023 [facility] for food impaction, [facility]. 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 Colonoscopy: Last 2009, incomplete, only to hepatic flexure due to excessive looping to consider CT colography per GI doc - DUE - ordered colon 06/27/2019, asked for GI to review prior to scheduling for advice on safety. FIT NEG 07/07/2020 - 12/22/2021 colonoscopy 2 polyps. DUE 12/2026 Morbid obesity with BMI of 40.0-44.9, adult 08/16 Overview (06/27/2019): BMI 50 --> 43 06/27/2019 Resolved Problems Problem Noted Date Diagnosed Date Resolved Date Gallstones 05/19/2022 05/25/2023 Overview (05/19/2022): Added automatically from request for surgery [id number] Cervical cancer screening 06/06/2019 Overview (06/06/2019): CCS Review: History: history of 'Clinical stage 1 [...] on OSH lab testing, see scan CAREPLAN: [facility] 6 08/02/2016 Overview (02/17/2016): Background: Engaged in Complex Case Management:Karen Cabrera, RN [phone] Goals/Recommendations: Chemotherapy-induced neutropenia 08/07/2015 06/04/2024 Multiple joint pain 06/04/2015 10/20/19 24 Neoplastic malignant related fatigue 06/04/2015 06/04/2024 Primary insomnia 05/11/2015 06/02/2023 S/P carpal tunnel release 02/11/2011 S/P tonsillectomy and adenoidectomy 02/11/2011 04/20/2015 S/P tube myringotomy 02/11/2011 016 S/P arthroscopy of knee 02/11/201107/2015 Overview (12/17/2015): Left side Asthma 04/13/2009 04/20/2015 Overview (12/07/2016): exercise induced Depressive disorder 07/25/2005 02/12/20 11 Overview (12/07/2016): LW Onset: [id number] ; Depression NOS Essential hypertension 09/21/200202/11 Overview (12/07/2016): Hypertension Obesity 09/21/2002 09/06/2013 Encounters Date Type Department Care Team Description 09/03/2024 Nurse Triage [facility] [address] [place] [id number] Nancy Molina MD SWELLING, EYE 08/15/2024 Refill [facility] [address] [place] [id number] Nancy Molina MD Refill (losartan (COZAAR) 50 MG tablet [Pharmacy Med Name: LOSARTAN 50MG TABLETS]) 07/28/2024 Refill [facility] [address] [place] [id number] Nancy Molina MD Refill (atorvastatin (LIPITOR) 20 MG tablet [Pharmacy Med Name: ATORVASTATIN 20MG TABLETS]) from Last 3 Months Immunizations Immunization Administration Dates Next Due Flu Vac (3+ yrs) 01/20/2015 Flu Vac Preserv Free (3+yrs) 02/11/2011,01/31/20 04 Fluzone Qiv Multidose Vial 0.25 (6-35 Mos) 02/22 HepB Adult (Heplisav-B, 19+ yrs, 2 dose series) 10/25/2022,04/29/2022 Influenza IIV4 (Quadrivalent) 0.5mL (12316) 12/2020,12/31/2019,02/03/2015 Influenza IIV4 (Quadrivalent ) Fluad, 65+ Yrs 04/29/2022 Influenza LAIV3 2-49 years (Flumist) 02/24/2010 Influenza, Unspecified Formulation 02/16/2002 PCV20 ([id number]) 04/29/2022 PPSV23 (Pneumovax) 03/24/2017 Pfizer Monovalent 12+ Purple Top 07/23/2020,06/15 TDAP (ADACEL) 12/04/2009 Tdap 12/24/2020 Zoster RZV (Shingrix) 12/07/2020,12/31/2019 Family History Medical History Relation Name Comments Cancer Father Aunt Latoya melanoma Cataract Father Aunt Latoya Sleep apnea Father Aunt Latoya Snoring Father Aunt Latoya Remember it was noisy when I was a kid Cataract Mother X Diabetes Mother X Heart Disease Mother X CHF High Cholesterol Mother X Macular Degeneration Mother X Sleep apnea Mother X Defects Brother 1 Osteogenesis i mperfecta Asthma Brother 2 Rosales Heart Disease Brother 2 Rosales at 62 High Blood Pressure Brother 2 Rosales Sleep apnea Brother 2 Rosales Snoring Brother 2 Rosales His could not sleep in the same room Sleep apnea Brother 3 Ron Amblyopia/Strabismus Daughter Cancer Maternal Aunt 1 Aunt Cathern breast cance r, lung cancer Cancer, Breast Maternal Aunt 1 Aunt Cathern Cancer Maternal Aunt 2 Aunt M Metastatic c ancer Cancer Maternal Aunt 3 X skin cancer Heart Disease Maternal Grandfather X Heart Disease Maternal Grandmother X Alcohol/Drug Abuse Maternal Uncle Alcohol/Drug Abuse Son 1 Early Son 1 Suicide Cancer, Colon Negative Family History Cancer, Ovary Negative Family History Glaucoma Negative Family History Retinal Detachment Negative Family History Relation Name Status Comments Father Aunt Latoya Alzheimer's Mother X Brother 1 Alive Brother 2 Rosales Alive Brother 3 Ron Alive Daughter Alive Maternal Aunt 1 Aunt Cathern Maternal Aunt 2 Aunt M Maternal Aunt 3 X Maternal Grandfather X Maternal Grandmother X Maternal Uncle Paternal Grandfather Paternal Grandmother Son 1 Son 2 Alive Son 3 Alive Social History Tobacco Use Types Packs/Day Years Used Date Smoking Tobacco: Never Smokeless Tobacco: Never Tobacco Cessation:Counseling Given: Not Answered Alcohol Use Standard Drinks/Week Comments Not Currently [...] Sign Reading Time Taken Comments Blood Pressure 114/75 05/30/2024 11:49 AM [facility] Pulse 78 05/30/2024 11:49 AM [facility] Temperature 36.7 C (98 F) 09/21/2023 4:58 PM CDT Respiratory Rate 16 09/21/2023 4:58 PM CDT Oxygen Saturation 100% 09/21/2023 4:58 PM CDT Inhaled Oxygen Concentration - - Weight 112.9 kg (248 lb 12.8 oz) 2024 11:49 AM [facility] Height 154.9 cm (5' 1) 05/30/2024 11:4 9 AM [facility] Body Mass Index 47.01 05/30/2024 11:49 AM [facility] Plan of Treatment Upcoming Encounters Date Type Department Care Team (Late st Contact Info) Description 11/21/2024 7:30 AM CDT Appointment [facility] [address] [place] [address] 11/28/2024 2:30 PM CDT Appointment [facility] [address] [place] [address] [place] [address] [place] [address] Health Maintenance Due Date Last Done Comments RSV Vaccine (1 - Risk 60-74 years 1-dose series) 2016 COVID-19 Vaccine ( season) 2023 07/23/2020, 07/02/2020 Diabetes: HGBA1C 11/19/2024 05/22/2024, , 11/27/2023, Additional history exists Adult Preventive Visit 11/27/2024 , 10/25/2022, 07/14/2021, Additional history exists Diabetes: Foot Exam 11/27/2024 11/28/2023, 10/25/2022, 10/25/2022 (Completed), Additional history exists Influenza Vaccine (Season Ended) 2024 04/29/2022, 12/24/2020, 12/31/2019, Additional history exists Diabetes: Eye Exam 02/20/2025 02/21/2024, 1 04/22/2023, 05/18/2021, Additional history exists Mammogram 03/13/2025 03/13/2024, 10/16, 07/23/2021, Additional history exists Diabetes: Creatinine 05/22/2025 05/22/2024, 02/29/2024, 11/27/2023, Additional history exists Diabetes: Urine Microalbumin 05/22/2025 05/22/2024, 05/10/2023, 05/13/2022, Additional history exists Colonoscopy 12/22/2026 12/22/2021, 11/15, 11/23/2009 Dexa 01/13/2027 01/14/2020 Diabetes: Lipid Panel 05/22/2029 05/22/2024 , 11/27/2023, 05/06/2023, Additional history exists DTaP/Tdap/Td Vaccine (3 - Tdap) 12/24/2030 12/24/2020, 12/04/2009 Hep C Screening (Preventive Services) Completed 03/24/2017 Cervical Cancer Screening Discontinued 2019, 05/28/2019, 09/19/2016, Additional history exists FIT Colon Cancer Screening Discontinued 07/04/2020 Zoster/Shingles Vaccine Completed 12/07/2020, 12/30 Pneumococcal Vaccine 50+ Yrs Completed 04/29/2022, 03/24/2017 HepB Vaccine Completed 10/25/2022, 04/29/2022 HepA Vaccine Aged Out No longer eligi ble based on patient's age to complete this topic Hib Vaccine Aged Out No longer eligi ble based on patient's age to complete this topic IPV (Polio) Vaccine Aged Out No longe r eligible based on patient's age to complete this topic MCV4 Vaccine Aged Out No longer eligi ble based on patient's age to complete this topic Meningococcal B Vaccine Aged Out No l onger eligible based on patient's age to complete this topic Procedures Procedure Name Priority Date/Time Associated Diagnosis Comments BASIC METABOLIC PANEL Routine 05/22/2024 7:36 AM [facility] Type 2 diabetes mellitus without complication, without long-term current use of insulin (HRC) ALBUMIN/CREAT RATIO Routine 05/22/2024 7:36 AM [facility] Type 2 diabetes mellitus without complication, without long-term current use of insulin (HRC) LIPID PANEL & DIRECT LDL (IF NEEDED) Routine 05/22/2024 7:36 AM [facility] Pure hypercholesterolemia HGB A1C Routine 05/22/2024 7:36 AM [facility] Type 2 diabetes mellitus without complication, without long-term current use of insulin (HRC) MM MAMMOGRAM SCREENING BILAT W CAD Routine 03/13/2024 2:01 PM [facility] Encounter for screening mammogram for malignant neoplasm of breast ENDOSCOPY, COLON, SCREENING/DIAGNO STIC Routine 12/22/2021 7:04 AM CDT Encounter for screening for malignant neoplasm of colon FIT,OCCULT BLOOD, STOOL Routine 07/04/2020 3:13 PM CDT Encounter for screening for malignant neoplasm of colon DXA BONE DENSITY SPINE/HIP Routine 01/14/2020 3:11 PM CDT Menopause Screening for osteoporosis CYTOLOGY (PAP) Routine 05/28/2019 9:01 AM [facility] Carcinoma of fallopian tube, unspecified laterality (HRC) HEPATITIS C ANTIBODY, WITH REFLEX Routine 03/24/2017 7:51 AM [facility] Need for hepatitis C screening test from Last 3 Months or Most Recently Relevant to Health Maintenance Results * Lipid Panel & Direct LDL (if Needed) (05/22/2024 7:36 AM [facility]) Cholesterol 134 0 - 199 mg/dL 05/22/2024 11:10 AM [facility] Triglyceride 91 <=149 mg/dL 05/22/2024 11:10 AM [facility] HDL Cholesterol 40 >=40 mg/dL 11:10 AM [facility] LDL, Calculated 76 <130 mg/dL 11:10 AM [facility] Non HDL Chol, Calculated 94 <=159 mg/dL 05/22/2024 11:10 AM [facility] Cholesterol/HDL Ratio 3.4 <=5.0 05/22/2024 11:10 AM [facility] Hours Fasting 12.0 8 - 12 Hours 05/22/2024 11:10 AM [facility] Blood Venipuncture / Unknown 05/22/2024 7:36 AM [facility] 05/22/2024 7:55 AM [facility] us Nancy Molina MD LAB_1 Final Result [facility] [address] [place] [address], [facility] * (ABNORMAL) Basic Metabolic Panel (05/22/2024 7:36 AM [facility]) Sodium 139 136 - 145 mmol/L 05/22/2024 11:10 AM [facility] Potassium 4.1 3.5 - 5.1 mmol/L 05/22/2024 11:10 AM [facility] Chloride 110(H) 98 - 109 mmol/L 05/22/2024 11:10 AM [facility] CO2 22 20 - 29 mmol/L 05/22/2024 11:10 AM [facility] Anion Gap 7 6 - 16 mmol/L 05/22/2024 11:10 AM [facility] Calcium 9.2 8.4 - 10.4 mg/dL 05/22/2024 11:10 AM [facility] BUN 26 7 - 26 mg/dL 05/22/2024 11:10 AM [facility] Creatinine 0.80 0.55 - 1.02 mg/dL 05/22/2024 11:10 AM [facility] Glucose 111(H) 70 - 100 mg/dL 05/22/2024 11:10 AM [facility] Comment:The given reference range is for the fasting state. Non-fasting reference range for glucose is 70 - 180 mg/dL. GFR, Estimated >60 >60 mL/min/1.7 3m2 05/22/2024 11:10 AM [facility] Hours Fasting 12.0 8 - 12 Hours 05/22/2024 11:10 AM [facility] Blood Venipuncture / Unknown 05/22/2024 7:36 AM [facility] 05/22/2024 7:55 AM [facility] us Nancy Molina MD LAB_1 Final Result [facility] [address] [place] [address] * Albumin/Creatinine Ratio,Random Urine (05/22/2024 7:36 AM [facility]) Albumin/Creati nine Ratio, Urine, Random 13 <30 mg/g 05/22/2024 10:49 AM [facility] Albumin, Urine, Random 10.9 mg/L 05/22/2024 10:49 AM [facility] Creatinine, Urine, Random 83 >20 mg/dL mg/dL 05/22/2024 10:49 AM [facility] Urine Non-blood Collection / Unknown 05/22/2024 7:36 AM [facility] 05/22/2024 7:54 AM [facility] Nancy Molina MD LAB_1 Final Result Performing Organization Address [facility] de Phone Number [facility] [address] [place] [address] * (ABNORMAL) Hgb A1C (05/22/2024 7:36 AM [facility]) Hemoglobin A1C (Rapid) 5.9(H) <=5.6 % 05/22/2024 9:13 AM [facility] Estimated Average Glucose (Calc) 123 < 117 mg/dL 05/22/2024 9:13 AM [facility] Comment:Estimated average gl ucose (eAG) converts A1c into glucose units (mg/dL) and estimates average glucose over the past approximately 3 months. The eAG reference interval (<117 mg/dL) corresponds to an A1c of <5.7%. Blood Venipuncture / Unknown 05/22/2024 7:36 AM [facility] 05/22/2024 7:55 AM [facility] Narrative [facility] - 05/22/2024 9:13 AM [facility] For patients not previously diagnosed with diabetes: 5.7-6.4%: Increased risk for diabetes 6.5% and greater: Diagnostic for diabetes For patients diagnosed with diabetes: <8.0%: Goal of therapy for ages 18-75 Clinicians may recommend a higher or lower goal for specific individuals. The test method used for this Hemoglobin A1c result can experience interference from elevated hemoglobin and other hemoglobin variants. In patients with results that do not correlate clinically, contact the lab for further direction. Nancy Molina MD LAB_1 Final Result Performing Organization Address [facility] Co de Phone Number [facility] [address] [place] [address] * MM Mammogram Screening Bilat W CAD (03/13/2024 2:01 PM [facility]) Anatomical Region Laterality Modality Breast Bilateral Mammography Impressions 03/13/2024 2:15 PM [facility] : ACR BI-RADS Category 1: Negative RECOMMENDATION: Follow Up Imaging in 12 months - Bilateral The results and recommendations of this examination will be communicated to the patient. Narrative 03/13/2024 2:15 PM [facility] MM MAMMOGRAM SCREENING BILAT W CAD performed on 03/13/24 [facility] Accredited Facility: [place] [address] Compared to: 11/09/2022 MM Mammogram Screening Bilat W CAD, 07/23/2021 MM Mammogram Screening Bilat W CAD, and 06/15/2019 MM Mammogram Screening Bilat W 3D Reji W CAD FINDINGS: Bilateral screening mammogram was performed with the assistance of Computer-Aided Detection . The breasts are almost entirely fatty. There is no radiographic evidence of malignancy. us Nancy Molina MD RAD LORI Final Result * Endoscopy, Colon, Screening/Diagnostic (12/22/2021 7:04 AM CDT) Anatomical Region Laterality Modality Other 12/22/2021 7:04 AM CDT Narrative 12/22/2021 7:04 AM CDT Patient Name: Karen Hopkins Procedure Date: 12/22/2021 7:04 AM Date of : 1955 Admit Type: Outpatient Age: 66 Gender: Female Note Status: Finalized Attending MD: Michelle Moore , Procedure: Colonoscopy Indications: Screening for colorectal malignant neoplasm, Last colonoscopy: November 2009 Providers: Michelle Moore, Kavita Kowalski, RN Referring MD: Medicines: Fentanyl 150 micrograms IV, Midazolam 4 mg IV Complications: No immediate complications. Procedure: After I obtained informed consent, the scope was passed under direct vision. Throughout the procedure, the patient's blood pressure, pulse, and oxygen saturations were monitored continuously. The [id number] was introduced through the anus and advanced to the terminal ileum. The colonoscopy was performed without difficulty. The patient tolerated the procedure well. The quality of the bowel preparation was good. Findings: The terminal ileum appeared normal. Two sessile polyps were found in the ascending colon. The polyps were 4 to 8 mm in size. These polyps were removed with a cold snare. Resection and retrieval were complete. No additional abnormalities were found on retroflexion. Moderate Sedation: Moderate (conscious) sedation was administered by the endoscopy nurse and supervised by the endoscopist. The patient's oxygen saturation, heart rate, blood pressure and response to care were monitored. Total physician intraservice time was 23 minutes. This time is the duration from the initial medication administration until the social media intern assists with initial maneuvers (biopsy / polypectomy / etc.), or if no maneuvers are performed, until the endoscopist leaves the room. Impression: - The examined portion of the ileum was normal. - Two 4 to 8 mm polyps in the ascending colon, removed with a cold snare. Resected and retrieved. Recommendation: - Await pathology results. - Repeat colonoscopy in 5-10 years for surveillance based on pathology results. Procedure Code(s): --- Professional --- 66437, Colonoscopy, flexible; with removal of tumor(s), polyp(s), or other lesion(s) by snare technique [id number], Moderate sedation; each additional 15 minutes intraservice time G0500, Moderate sedation services provided by the same physician or other qualified health career services manager performing a gastrointestinal endoscopic service that sedation supports, requiring the presence of an independent trained observer to assist in the monitoring of the patient's level of consciousness and physiological status; initial 15 minutes of intra-service time; patient age 5 years or older (additional time may be reported with 87400, as appropriate) Diagnosis Code(s): --- Professional --- Z12.11, Encounter for screening for malignant neoplasm of colon K63.5, Polyp of colon CPT copyright 2020 [employer]. All rights reserved. The codes documented in this report are preliminary and upon event representative review may be revised to meet current compliance requirements. Michelle Moore, 12/22/2021 8:21:53 AM This document has been electronically signed. Number of Addenda: 0 Note Initiated On: 12/22/2021 7:04 AM Endoscopy Report Procedure Note Michelle Moore MD - 12/22/2021 Patient Name: Karen Hopkins Procedure Date: 12/22/2021 7:04 AM Date of : 1955 Admit Type: Outpatient Age: 66 Gender: Female Note Status: Finalized Attending MD: Michelle Moore , Procedure: Colonoscopy Indications: Screening for colorectal malignant neoplasm, Last colonoscopy: November 2009 Providers: Michelle Moore, Kavita Kowalski, RN Referring MD: Medicines: Fentanyl 150 micrograms IV, Midazolam 4 mg IV Complications: No immediate complications. Procedure: After I obtained informed consent, the scope was passed under direct vision. Throughout the procedure, the patient's blood pressure, pulse, and oxygen saturations were monitored continuously. The [id number] was introduced through the anus and advanced to the terminal ileum. The colonoscopy was performed without difficulty. The patient tolerated the procedure well. The quality of the bowel preparation was good. Findings: The terminal ileum appeared normal. Two sessile polyps were found in the ascending colon. The polyps were 4 to 8 mm in size. These polyps were removed with a cold snare. Resection and retrieval were complete. No additional abnormalities were found on retroflexion. Moderate Sedation: Moderate (conscious) sedation was administered by the endoscopy nurse and supervised by the endoscopist. The patient's oxygen saturation, heart rate, blood pressure and response to care were monitored. Total physician intraservice time was 23 minutes. This time is the duration from the initial medication administration until the social media intern assists with initial maneuvers (biopsy / polypectomy / etc.), or if no maneuvers are performed, until the endoscopist leaves the room. Impression: - The examined portion of the ileum was normal. - Two 4 to 8 mm polyps in the ascending colon, removed with a cold snare. Resected and retrieved. Recommendation: - Await pathology results. - Repeat colonoscopy in 5-10 years for surveillance based on pathology results. Procedure Code(s): --- Professional --- 12068, Colonoscopy, flexible; with removal of tumor(s), polyp(s), or other lesion(s) by snare technique [id number], Moderate sedation; each additional 15 minutes intraservice time G0500, Moderate sedation services provided by the same physician or other qualified health career services manager performing a gastrointestinal endoscopic service that sedation supports, requiring the presence of an independent trained observer to assist in the monitoring of the patient's level of consciousness and physiological status; initial 15 minutes of intra-service time; patient age 5 years or older (additional time may be reported with 28200, as appropriate) Diagnosis Code(s): --- Professional --- Z12.11, Encounter for screening for malignant neoplasm of colon K63.5, Polyp of colon CPT copyright 2020 [employer]. All rights reserved. The codes documented in this report are preliminary and upon event representative review may be revised to meet current compliance requirements. Michelle Mcgowan Teresa, 12/22/2021 8:21:53 AM This document has been electronically signed. Number of Addenda: 0 Note Initiated On: 12/22/2021 7:04 AM Endoscopy Report Nancy Molina MD ET GI PROCEDURE ORDERABLES Fi nal Result * FIT Colon Rectal Cancer Screening (07/04/2020 3:13 PM CDT) FIT Specimen 1 Negative Negative 07/06/2020 12:46 PM CDT [facility] Stool 07/04/2020 3:13 PM CDT 07/04/2020 3:13 PM CDT Nancy Molina MD LAB_1 Final Result Performing Organization Address City/State/[facility] Co de Phone Number [facility] [address] [phone] * DEXA Bone Density Spine/Hip (01/14/2020 3:11 PM CDT) Anatomical Region Laterality Modality Lower Extremity, Spine, Hip, L-Spine Radiographic Imaging Narrative 01/17/2020 5:08 PM CDT CLINIC DXA REPORT Patient Name: Karen Mendoza Hopkins Auxier: Rno Maurer MD Densitometer: Hologic Neterion W (S/N [id number]) SANCHEZ BONE OSTEOPOROSIS RISK FACTORS FROM PATIENT QUESTIONNAIRE: The patient is a 64 y.o.female: Calcium intake may not be adequate. There is no self-reported personal history of osteoporotic fracture. There is no family history in a first degree relative of hip and/or spine fracture. Zero or one self-reported falls over the past 12 months BONE MINERAL DENSITY: Lumbar Spine Vertebrae Included: L1;L2;L3;L4 Bone Mineral Density (gm/cm2): 1.139 T-Score: 0.8 Z-Score: 2.5 Total Hip Bone Mineral Density (gm/cm2): 0.838(right) T-Score: -0.9 Z-Score: 0.3 Femoral Neck Bone Mineral Density (gm/cm2): 0.707 T-Score: -1.3 Z-Score: 0.2 FRAX 10 year probability major osteoporotic fracture: 7.1% 10 year probability hip fracture: 0.5% COMPARISON TO PRIOR STUDY: This is a baseline bone density test (first one at [facility]) VERTEBRAL FRACTURE ASSESSMENT: Not done ASSESSMENT: 1. Mild low bone mass, based on T-score(s) at the femoral neck 2. Patient is at low risk of fracture, based on age, fracture history, bone mineral density at all skeletal sites, and presence or absence of other risk factors. RECOMMENDATIONS: 1. Maintain appropriate calcium and vitamin D intake 2. Repeat DXA in 6 years FRAX Explanation: The 10 year risks of hip and major osteoporotic fractures (clinical spine, forearm, hip or shoulder fracture) are calculated by the FRAX algorithm based on femoral neck bone density, age, gender, race/ethnicity, weight, height, previous fracture, parental hip fracture, smoking status, glucocorticoid intake, history of RA, secondary osteoporosis, and high alcohol consumption. FRAX Fracture Risk Categories in terms of major osteoporotic fractures: < 10% = low fracture risk ? 10% and <15% = mildly increased fracture risk ? 15% and <20% = moderately increased fracture risk ? 20% and <30% = high fracture risk ? 30% = very high fracture risk National Osteoporosis Foundation Treatment Guideline A clinician may consider FDA-approved medical therapies in postmenopausal women and men aged 50 years and older, if one or more of the following is present (clinical correlation required and therapy may not always be indicated): 1. The patient has a hip or vertebral fracture. 2. T-score ? -2.5 at the femoral neck, hip, or spine after appropriate evaluation to exclude secondary causes. 3. Low bone mass (T-score between -1.0 and -2.5 at the femoral neck, hip or spine) and a 10-year probability of a hip fracture ? 3% or a 10-year probability of a major osteoporosis-related fracture ? 20% based on the FRAX scores. us Nancy Molina MD RAD DEXA Final Result * PAP Test (05/28/2019 9:01 AM WAX BLEACHER) Case Report Pap Case: [id number] Authorizing Provider: Kim Albright APRN, Collected: 05/28/2019 09:01 AM UNDER SEAL OPERATOR [facility] Received: 05/28/2019 11:55 AM Oncology First Screen: Terrie Kellogg CT (ASCP) Specimen: Pap Test, Routine, Cervix/Endocervix 05/31/2019 9:22 AM WAX BLEACHER [facility] Pap Specimen Adequacy Satisfactory for evaluation, endocervical/ashley sformation zone component present. 05/31/2019 9:22 AM WAX BLEACHER [facility] Pap Interpretation Negative for intraepithelial lesion or malignancy (NILM). 05/31/2019 9:22 AM WAX BLEACHER [facility] at 0922 WAX BLEACHER Gross Description The specimen is received in SurePath fixative and properly labeled. 1 Pap-stained SurePath slide is prepared. 05/31/2019 9:22 AM WAX BLEACHER [facility] Pap Disclaimer The Pap test is a screening test designed to aid in the detection of cervical cancer and its precursor lesions. It is not a diagnostic procedure and should not be used as the sole means of detecting cervical cancer. Both false-positive and false-negative reports may occur. 05/31/2019 9:22 AM WAX BLEACHER [facility] Embedded Images 0 9:22 AM WAX BLEACHER [facility] Other Specimen Type ENTIRE ENDOCERVIX / Unknown 05/28/2019 9:01 AM WAX BLEACHER 05/28/2019 11:55 AM WAX BLEACHER Comment:LMP: Patient's last menstrual period was 03/17/2012. Kim Albright APRN, [facility] Final Result [facility] [address] [place] [address], [facility] * Hepatitis C Virus Evelin with Reflex (03/24/2017 7:51 AM WAX BLEACHER) Hepatitis C Antibody Nonreactive Nonreactive PN SOFT 03/24/2017 7:51 AM WAX BLEACHER 03/24/2017 11:15 AM WAX BLEACHER Narrative PN SOFT - 03/24/2017 2:39 PM WAX BLEACHER Performed at [facility] [address] [place] [address] CLIA number [id number] us Nancy Molina MD LAB_1 Final Result PN SOFT [address] [place] [address] from Last 3 Months or Most Recently Relevant to Health Maintenance Insurance [id number] [address] [place] [address] [id number] [address] [place] [address] [facility] MEDIC[facility] PART A [id number] [address] [place] [address] [id number] [address] [place] [address] Advance Directives * Full Code (Latest Code Status on File) Date Activated Date Inactivated Comments 07/13/2022 10:37 AM 07/13/2022 2:19 PM * Full Code Date Activated Date Inactivated Comments 09/23/2015 11:41 AM 09/23/2015 10:34 PM * Full Code Date Activated Date Inactivated Comments 03/20/2015 1:42 PM 03/22/2015 9:09 PM Care Teams Java Analyst Relationship Specialty [place] [id number] [address] [place] [address] PCP - General 09/06/13
--- OUTSIDE RECORDS SUMMARY | 2024-09-03 09:15 | XMS_ITS | Encounter Summary ---
Author Organization [employer] Address [address], [place] [address] Care Team Providers Care Shoe Designer Name Role Phone Nancy Molina MD Primary Care Provider [phone] Encounter Details Date Type Department Care Team (Late st Contact Info) Description 10/23/2015 Telephone [facility] [address] [place] [address] [place] [address] [place] [address] Social History Tobacco Use Types Packs/Day Years Used Date Smoking Tobacco: Never Assessed Comments No Sex and Gender Information Value Date Recorded Sex Assigned at Not on file Legal Sex Female 5:16 AM CDT Gender Identity Not on file Sexual Orientation Not on file documented as of this encounter Nursing Notes * Nancy Molina MD - 10/23/2015 3:20 PM CDT I am not sure what to do with this message.. ?.. I have not prescribed gabapentin, not on med list current or historical - should verify gabapentin dose with the prescribing provider. And, she shouldcheck at home on the statin or we can address at next med check. * Karen Cabrera, RN - 10/23/2015 3:10 PM CDT Action is required from the clinic for Karen Hopkins. Action needed: She is not sure if she is taking atorvastatin. Please confirm late evening gabapentin dose. Karen Hopkins is enrolled with Disease and Case Management. Please see the Care Team for registered nurse hh case managereconomic development manager information. Karen Brooks RN 10/23/2015 3:06 PM MARY Cabrera RN [phone] documented in this encounter Plan of Treatment Upcoming Encounters Date Type Department Care Team (Late st Contact Info) Description 11/21/2024 7:30 AM CDT Appointment [facility] [address] [place] [id number] 11/28/2024 2:30 PM CDT Appointment [facility] [address] [place] [address] [place] [address] [place] [address] documented as of this encounter Visit Diagnoses Not on filedocumented in this encounter Care Teams Shoe Designer Relationship Specialty [place] [address] [place] [address] PCP - General 09/06/13 documented as of this encounter
--- OUTSIDE RECORDS SUMMARY | 2024-09-03 09:15 | XMS_ITS | Encounter Summary ---
Author Organization [facility] [employer] Address [address] [place] [address] Care Team Providers Care Clinical Practice Consultant Name Role Phone Nancy Molina Primary Care Provider [phone] Selina Trimble RN Unavailable Jessica Hernandez APRN LUSTER APPLICATOR Unavailable + [phone] Encounter Details Date Type Department Care Team (Late st Contact Info) Description 10/01/2015 [facility] [address] [place] [id number] [facility] Social History Tobacco Use Types Packs/Day Years Used Date Smoking Tobacco: Never Alcohol Use Standard Drinks/Week Comments No 0 (1 standard drink = 0.6 oz pur e alcohol) Comments No Sex and Gender Information Value Date Recorded Sex Assigned at Not on file Legal Sex Female 4:28 AM MANAGER SOCIAL WORK Gender Identity Not on file Sexual Orientation Not on file documented as of this encounter Plan of Treatment Not on file documented as of this encounter Visit Diagnoses Not on filedocumented in this encounter Care Teams Clinical Practice Consultant Relationship Specialty Start Date End Date Nancy Molina PCP - General 03/31/15 Selina Trimble RN [facility] Production Trainer, [phone] Continuity Production Trainer Gynecologic Oncology 06/26/15 08/21/19 Jessica Hernandez APRN LUSTER APPLICATOR [facility] Production Trainer, [phone] Nurse Practitioner Nurse Practitioner 07/17/15 documented as of this encounter
--- OUTSIDE RECORDS SUMMARY | 2024-09-03 09:15 | XMS_ITS | Clinical Summary ---
Author Organization [facility] [facility] Address [facility] [place] [address] Care Team Providers Care Security Assurance Specialist Name Role Phone Shagufta Grijalva [facility] - Primary Care Provider Allergies Active Allergy Reactions Criticality Noted Date Comments Gomez Inhibitors Cough,Vomiting 02/21/2021 Benzalkonium Chloride Hives 02/21/2021 Medications acyclovir (ZOVIRAX) 400 mg tablet Take 400 mg by mouth 2 times daily. 09/09/2020 Active aspirin (ECOTRIN) 81 mg enteric coated tablet Take 1 Tablet by mouth once daily. 06/25/2020 Active atorvastatin (LIPITOR) 20 mg tablet Take 1 Tablet by mouth once daily. 06/25/2020 Active cholecalciferol (VITAMIN D3) 2,000 unit capsule Take 1 Capsule by mouth once daily. 06/25/2020 Active losartan (COZAAR) 25 mg tablet Take 25 mg by mouth once daily. 12/01/2020 Active metFORMIN (GLUCOPHAGE XR) 500 mg Extended-Releas e tablet Take 2,000 mg by mouth. 06/30/2020 Active Social History Tobacco Use Types Packs/Day Years Used Date Smoking Tobacco: Never Smokeless Tobacco: Never Comments Unknown Sex and Gender Information Value Date Recorded Sex Assigned at Not on file Legal Sex Female 6:11 PM GEOMAGNETICIAN Gender Identity Not on file Sexual Orientation Not on file Obstetrics History Last Filed Vital Signs Vital Sign Reading Time Taken Comments Blood Pressure 152/82 02/21/2021 2:55 PM GEOMAGNETICIAN Pulse 83 02/21/2021 2:55 PM GEOMAGNETICIAN Temperature 36.7 C (98.1 F) 02/21/2021 2:55 PM GEOMAGNETICIAN Respiratory Rate 20 02/21/2021 2:55 PM GEOMAGNETICIAN Oxygen Saturation 99% 02/21/2021 2:55 PM GEOMAGNETICIAN Inhaled Oxygen Concentration - - Weight 111.1 kg (245 lb) 02/21/2021 2:55 PM GEOMAGNETICIAN Height 157.5 cm (5' 2) 02/21/2021 2:55 PM GEOMAGNETICIAN Body Mass Index 44.81 02/21/2021 2:55 PM GEOMAGNETICIAN Plan of Treatment Health Maintenance Due Date Last Done Comments Tdap 1967 Depression screening for age 12+ 1968 Hepatitis C screening for ag e 18-79 1974 Tetanus booster 1976 Colonoscopy through age 75 2001 Lipids for age 45-75 2001 Mammogram for age 45-75 2001 Pneumococcal series for age 50+ (1 of 1 - PCV) 2006 Zoster (shingles) series for age 50+ (1 of 2) 2006 DEXA/DXA scan for age 65+ 2021 BMI (ht and wt on same day) for age 18+ 02/21/2022 02/21/2021 COVID-19 vaccine series ( season) 2023 07/23/2020, 07/02/2020 Influenza Vaccine (Season Ended) 2024 RSV vaccine for adults or (1 - 1-dose 75+ series) 2031 Hepatitis B series for 19+ Aged Out N o longer eligible based on patient's age to complete this topic Insurance [id number] Care Teams Security Assurance Specialist Relationship Specialty Start Date End Date Shagufta Grijalva [facility] - [address] [address] [place] [place] [phone] PCP - General 02/21/21
== END 2024-09-03 10:01 | disposition home or self-care (01) ==
PROVIDERS: Emergency Provider Emergency Medicine
DX: S06.0X0A Concussion without loss of consciousness, initial encounter (principal); S05.12XA Contusion of eyeball and orbital tissues, left eye, initial encounter; R42 Dizziness and giddiness; R51.9 Headache, unspecified; W01.0XXA Fall on same level from slipping, tripping and stumbling without subsequent striking against object, initial encounter; Y92.61 Building [any] under construction as the place of occurrence of the external cause; Y99.0 Civilian activity done for income or pay
CPT/HCPCS: 70450; 72125; 99283; 99284; A9270